=== PATIENT | female | born 1960 | race Caucasian/White ===

== ENCOUNTER 2018-08-24 02:12 | Emergency (ER) | payer MEDICAID ==
[~2018-08-24] VITALS: Ht 157.5 cm; Wt 81.6 kg
[2018-08-24] MEDS ORDERED: ONDANSETRON ODT 4 MG TAB PO ONE (03:00)
[2018-08-24] MEDS ORDERED: HYDROmorphone HCL 2 MG/ML VL IM ONE ×2 (03:00→05:30)
[2018-08-24 05:03] VITALS: BP 122/74
== END 2018-08-24 05:39 | disposition home or self-care (01) ==
LOC: EDBD 02:12 → ER 02:19
DX: S40.812A Abrasion of left upper arm, initial encounter (principal); S40.811A Abrasion of right upper arm, initial encounter; M54.5 Low back pain; M25.522 Pain in left elbow; E07.9 Disorder of thyroid, unspecified; Z90.49 Acquired absence of other specified parts of digestive tract; Z90.710 Acquired absence of both cervix and uterus; Y07.499 Other family member, perpetrator of maltreatment and neglect; Y93.89 Activity, other specified; Y99.8 Other external cause status; Y92.89 Other specified places as the place of occurrence of the external cause
CPT/HCPCS: 70450; 72125; 72131; 96372; 99284; J1170; Q0162